=== PATIENT | male | born 1955 | race Caucasian/White ===

== ENCOUNTER 2025-05-14 10:13 | Outpatient (CLI) | payer OTHER, SELFPAY ==
--- NOTE | ~2025-05-14 | CT_ITS ---
CT of the Abdomen and Pelvis: Indication: Prostate cancer Technique: 2.5 mm axial scans were obtained through the abdomen and pelvis following intravenous adm inistration of 100 cc of Omnipaque 350. Dose reduction technique was used on this scan by utilizing a utomated exposure control and iterative reconstruction technique. The dose-length product (DLP) was 1 194.54 mGy-cm. Findings: Scans through the lung bases are unremarkable. The liver, spleen, pancreas, gallbladder, right adrenal gland are within normal limits. 1.4 cm left a drenal nodule is indeterminate. Probable parapelvic left renal cysts rather than hydronephrosis. Smal l cortical right renal cyst present. There are atherosclerotic calcifications of the aorta. No lymph adenopathy. No bowel obstruction or bowel wall thickening. There is no evidence to suggest acute appendicitis. Images through the pelvis were performed. Urinary bladder unremarkable. Prostate gland is enlarged an d mildly heterogeneous. Impression: No definite evidence for metastatic disease. 1.4 cm left adrenal nodule there is statistically most likely adenoma. Consider follow-up MR to attem pt to confirm. Probable parapelvic left renal cyst versus possibly hydronephrosis. Mildly enlarged prostate gland. Reviewed, dictated and finalized at location . Impression: No definite evidence for metastatic disease. 1.4 cm left adrenal nodule there is statistically most likely adenoma. Consider follow-up MR to attempt to confirm. Probable parapelvic left renal cyst versus possibly hydronephrosis. Mildly enlarged prostate gland.
--- NOTE | ~2025-05-14 | NM_ITS ---
EXAMINATION: NM bone scan whole body DATE: 05/14/2025 14:30 INDICATION: Prostate cancer TECHNIQUE: 25.0 mCi Tc-99m HDP was administered intravenously. Delayed whole-body scintigrams were o btained. COMPARISON: CT dated 05/14/2025 FINDINGS: Typical pattern of minimal to mild scattered degenerative joint centered uptake at the feet, hands an d wrists, elbows, shoulders and sternoclavicular joints. Small focus of mild likely dental disease re lated uptake at the left mandible. No other suspicious foci of abnormal bone uptake to suggest metast atic disease. There is asymmetric accumulation of activity at the upper and lower poles of the left k idney which appears to correspond to mild hydronephrosis in the calyces peripheral to a large parapel jason cyst in the left renal hilum. IMPRESSION: 1. No foci of atypical bone uptake to suggest metastatic disease. Reviewed, dictated and finalized at location B.
[2025-05-14 10:48] LABS: Estimated Glomerular Filt Rate > 60
== END 2025-05-14 10:14 | disposition home or self-care (01) ==
PROVIDERS: PCP Internal Medicine; Visit Provider Urology
DX: C61 Malignant neoplasm of prostate (principal); N28.1 Cyst of kidney, acquired; D35.02 Benign neoplasm of left adrenal gland
CPT/HCPCS: 74177; 78306; A9503; Q9967

== ENCOUNTER 2025-07-18 13:58 | Outpatient (CLI) | payer OTHER, SELFPAY ==
--- NOTE | ~2025-07-18 | PE_ITS ---
EXAMINATION: PET_PETPSMAST_PT DATE: 07/18/2025 16:06 INDICATION: Prostate cancer TECHNIQUE: 4.245 mCi of Illucix Ga-68([id number]) was administered i.v. Low dose computed tomography (CT) images were acquired from the base of the brain to the base of the brain to the proximal thighs for attenuation correction and anatomic localization. Positron emission tomography (PET) images were acquired in the same distribution beginning 69 minutes after injection. Images including fused PET/CT images were reconstructed in axial, coronal, and sagittal planes. Automated exposure control technique was employed. The dose-length product was 1342.91mGy-cm. COMPARISON: CT and bone scan dated 05/14/2025 FINDINGS: Head/neck: Typical pattern of symmetric physiologic increased activity in the lacrimal, parotid and submandibular glands as well as along the mucosa of the nasal and oral cavities, pharynx and hypopharynx. No pathologically enlarged cervical lymphadenopathy or suspicious foci of increased uptake in the visualized head or neck. Chest: Respiratory motion and mild dependent atelectasis in both lungs. No suspicious pulmonary nodules or pleural effusion. Heart size is normal. Atherosclerotic coronary artery calcifications. No pericardial effusion. Thoracic aorta is normal in caliber. No pathologically enlarged or PSMA avid thoracic lymp hadenopathy. Abdomen/pelvis/proximal thighs: Physiologic renal accumulation and excretion of activity in the kidneys, bladder and along portions of ureters. There are photopenic defects associated with bilateral renal cysts, the larger on the right measuring 2.3 cm. Unchanged moderate left hydronephrosis versus prominent peripelvic cysts at the left renal hilum without evident obstructing stone or mass at the ureteropelvic junction. Prostatomegaly measuring 5.7 x 4.8 cm. There are small regions of increased activity posteriorly in the peripheral zone of the prostate with maximal SUV of 4.1 on the left and 3.5 on the right consistent with reported biopsy-proven primary prostate cancer. Normal degree and slightly heterogenous pattern of increased uptake throughout the liver and spleen without radiologic correlate or dominant PSMA avid lesion. The gallbladder, pancreas and right adrenal gland are normal. 1.1 cm low-attenuation left adrenal adenoma. Moderate uptake scattered throughout the bowels with typical duodenal and proximal jejunal predominance and without radiologic correlate, also likely physiologic. No other abnormal foci of increased uptake or pathologically enlarged lymphadenopathy in the abdomen, pelvis or proximal thighs. Musculoskeletal: Moderate lower cervical and lumbosacral and mild intervening thoracic and lumbar spondylosis. No suspicious lytic, blastic or abnormally PSMA avid bone lesions. IMPRESSION: 1. Mild increased uptake in the posterior prostate consistent with primary prostate cancer. No evident metastatic disease. 2. Unchanged moderate left hydronephrosis versus prominent peripelvic cysts with no evident obstructing stone or mass at the ureteropelvic junction. Reviewed, dictated and finalized at location A. IMPRESSION: 1. Mild increased uptake in the posterior prostate consistent with primary pros jane cancer. No evident metastatic disease. 2. Unchanged moderate left hydronephrosis versus prominent peripelvic cysts wit h no evident obstructing stone or mass at the ureteropelvic junction.
== END 2025-07-18 13:59 | disposition home or self-care (01) ==
PROVIDERS: PCP Family Medicine; Visit Provider Radiology Radiation Oncology
DX: Z51.0 Encounter for antineoplastic radiation therapy (principal); C61 Malignant neoplasm of prostate; Z19.1 Hormone sensitive malignancy status
CPT/HCPCS: 78815; A9596

== ENCOUNTER 2025-09-28 15:38 | Outpatient (CLI) | payer OTHER, SELFPAY ==
--- NOTE | ~2025-09-28 | MR_ITS ---
EXAMINATION: MR abdomen wo/w con DATE: 09/28/2025 16:59 INDICATION: Left adrenal mass. Prostate cancer. TECHNIQUE: Magnetic resonance imaging (MRI) of the abdomen was performed without and with 19 mL MultiHance intravenous contrast. COMPARISON: CT abdomen and pelvis 05/14/2025, PET/CT 07/18/2025 FINDINGS: The liver, gallbladder, and spleen are normal. There are 2 cysts in the pancreas measuring up to 5 mm. Right adrenal gland is normal. There is a 1.4 cm mass in left adrenal gland containing microscopic fat, consistent with an adenoma. There are cysts in the kidneys measuring up to 4.7 cm on the left. There is mild left hydronephrosis. There are no dilated loops of bowel. There are no pathologically enlarged lymph nodes. There is no free intraperitoneal fluid. IMPRESSION: 1. 1.4 cm left adrenal adenoma. 2. Two low-risk pancreatic cysts measuring up to 5 mm. The differential diagnosis includes pseudocyst, intraductal papillary mucinous neoplasm (IPMN), mucinous cystic neoplasm (MCN), serous cystadenoma, and neuroendocrine tumor. Consider abdomen MRI without and with contrast in 2 years. 3. Stable mild left hydronephrosis. Reviewed, dictated and finalized at location E. IMPRESSION: 1. 1.4 cm left adrenal adenoma. 2. Two low-risk pancreatic cysts measuring up to 5 mm. The differential diagnos is includes pseudocyst, intraductal papillary mucinous neoplasm (IPMN), mucinou s cystic neoplasm (MCN), serous cystadenoma, and neuroendocrine tumor. Consider abdomen MRI without and with contrast in 2 years. 3. Stable mild left hydronephrosis.
--- OUTSIDE RECORDS SUMMARY | 2025-09-28 15:43 | XMS_ITS | Clinical Summary ---
Author Organization 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 TAKE 1 TABLET BY MOUTH EVERY DAY 90 tablet 1 5 Active bisoprolol (ZEBETA) 5 MG tabletIndications:E ssential hypertension TAKE 1 TABLET BY MOUTH EVERY DAY 90 tablet 1 5 Active Active Problems Problem Noted Date Diagnosed Date Hypokalemia 01/19/2022 Elevated PSA 07/17/2021 Overactive bladder 05/10/2020 BMI 32.0-32.9,adult 05/10/2019 Gout 08/19/2017 Hyperlipidemia 06/21/2014 Essential hypertension 06/21/2014 Resolved Problems Problem Noted Date Diagnosed Date Resolved Date Need for prophylactic vaccin ation against Streptococcus pneumoniae (pneumococcus) 04/16/2021 04/21/2021 Health care maintenance 05/10/202003/30 Paroxysmal atrial fibrillation with RVR 07/05/2018 05/10/2019 Encounters Date Type Department Care Team Description 08/30/2025 Scan [facility] Scanned, [facility] CT (SCAN) 08/28/2025 Scan [facility] Scanned, [facility] 08/20/2025 2:20 PM CDT - 08/20/2025 11:59 PM CDT Hospital Encounter [facility] [address] [place] [address] DoserBerna SIZE PAINTER Discharge Disposition: Home or Self Care (Routine Discharge) 08/20/2025 Orders Only [facility] [address] [place] [id number] Berna Watts NP 08/20/2025 Travel 08/13/2025 1:40 PM CDT Office Visit [facility] [address] [address] Chadd Tovar MD Oxygen Saturation (Pt states his ox2 levels were low ) 08/13/2025 Travel 08/13/2025 Telephone [facility] & Internal [address] [phone] Chadd Tovar MD Breathing Problem 08/08/2025 Scan [facility] Scanned, [facility] 07/26/2025 Scan [facility] Scanned, [facility] 07/18/2025 Scan [facility] Scanned, [facility] Procedure (SCAN) 07/04/2025 Scan [facility] Scanned, [facility] from Last 3 Months Immunizations Immunization Administration Dates Next Due FLUAD (IIV, Trivalent, 0.5 M L Pre-filled Syringe) 08/23/2024 Fluzone High Dose (IIV, triv alent, 0.5mL) 08/08/2025,09/01/2024 Fluzone High Dose - >Age 65 (Prefilled Syringe) 10/01/2023,08/23/2023,09/02/2020 Influenza (Generic) 09/07/2019,08/20/2017,2015 Influenza Adult (Generic) 09/16/2022,,09/07/2019,2017,12/15/2017,12/15/2017,08/20/2017,1 12/25/2015 MODERNA COVID-19 (12+) MRNA, LNP-S, PF, 100 MCG/ 0.5 ML DOSE 02/17/2021,01/10/2021 MODERNA COVID-19 (ASSISTANT PROFESSOR OF BIOCHEMISTRY DHIRAJ TRUDY), MRNA, LNP-S, PF, 50 MCG/ 0.25 ML DOSE 11/17/2021,10/22/2021 Pneumococcal (Pneumovax 23) 04/16/2021 Pneumococcal (Prevnar 13) 11/09/2019 Shingrix 09/23/2021,07/17/2021 Td 11/04/2016 Td (Tenivac) preservative free 11/04/2016 Tdap (Generic) 06/16/2021 Family History Medical History Relation Comments Hypertension Father dialysis Father No Known Problems Mother Relation Status Comments Father Mother Alive Social History Tobacco Use Types Packs/Day Years Used Date Smoking Tobacco: Former Cigarettes 1 48 0 08/26/1970 - 08/26/2018 Smokeless Tobacco: Never Tobacco Cessation:Counseling Given: No Alcohol Use Standard Drinks/Week Comments Yes 0 (1 standard drink = 0.6 oz pur e alcohol) Occasional AUDIT-C Answer Date Recorded Q1: How often do you have a drink containing alc ohol? Monthly or less 11/18/2020 Q2: How many drinks containi ng alcohol do you have on a typical day when you are drinking? 1 or 2 11/18/2020 Frequency of Binge Drinking Not on file 10/30 PHQ-2 Answer Date Recorded Patient Health Questionnaire-2 Score 0 10/23/2024 Education Answer Date Recorded What is the highest level of school you have completed or the highest degree you have received? High school graduate 02/23/2019 Sex and Gender Information Value Date Recorded Sex Assigned at Male 05/11/2025 11:12 AM CDT Legal Sex Male 7:26 PM CDT Gender Identity Male 05/11/2025 11:12 AM CDT Sexual Orientation Not on file Last Filed Vital Signs Vital Sign Reading Time Taken Comments Blood Pressure 189/106 08/13/2025 1:28 PM CDT Pulse 58 08/13/2025 1:28 PM CDT Temperature 36.5 C (97.7 F) 08/13/2025 1:28 PM CDT Respiratory Rate 16 08/13/2025 1:28 PM CDT Oxygen Saturation 93% 08/13/2025 1:28 PM CDT Inhaled Oxygen Concentration - - Weight 107 kg (236 lb) 08/13/2025 1:28 PM CDT Height 182.9 cm (6') 08/13/2025 1:28 PM CDT Body Mass Index 32.01 08/13/2025 1:28 PM CDT Plan of Treatment Upcoming Encounters Date Type Department Care Team (Late st Contact Info) Description 11/01/2025 11:20 AM CARPENTRY INSTRUCTOR Office Visit [facility] Family & Internal Medicine [address] [phone] Chadd Tovar MD [address] [place] [id number] Health Maintenance Due Date Last Done Comments Hepatitis C 1973 AAA SCREENING 2019 Annual Medicare Wellness Visit 2019 PHQ-2 (Physician [place]) 11/29/2024 10/23/2024 Colorectal Cancer Screening Colonoscopy (10 Years) 12/14/2024 12/14/2014, 12/14/2014 COVID-19 Vaccine ( season) 2025 06/13/2025, 09/01/2024, 10/01/2023, Additional history exists RSV Immunization or 60+ Years (1 - 1-dose 75+ series) 2029 DTaP, Tdap and Td Vaccines (2 - Td or Tdap) 06/16/2031 06/16/2021, 11/04/2016, 11/04/2016 Pneumococcal Vaccine: 50+ Years Completed 04/16/2021, 11/09/2019 Zoster Vaccines Completed 09/23/2021, 07/17/2021 Influenza Adult Completed 08/08/2025, 02/2024, 08/23/2024, Additional history exists Hepatitis A Vaccines Aged Out No long er eligible based on patient's age to complete this topic Meningococcal B Vaccine Aged Out No l onger eligible based on patient's age to complete this topic Meningococcal Vaccine Aged Out No silvio haseeb eligible based on patient's age to complete this topic RSV Immunizations Under 20 Months Aged Out No longer eligible based on patient's age to complete this topic Procedures Procedure Name Priority Date/Time Associated Diagnosis Comments CT GENERIC 08/30/2025 CT GENERIC 08/30/2025 TESTOSTERONE, TOTAL Routine 08/20/2025 2 :38 PM CDT Prostate cancer ([facility]) PROSTATE SPECIFIC ANTIGEN,TOTAL Routine 08/20/2025 2:38 PM CDT Prostate cancer ([facility]) PROCEDURE GENERIC (SCAN ORDER) 07/18/2025 PROCEDURE GENERIC (SCAN ORDER) 07/18/2025 COLONOSCOPY Routine 12/14/2014 12:00 AM CARPENTRY INSTRUCTOR from Last 3 Months or Most Recently Relevant to Health Maintenance Results * CT GENERIC (08/30/2025) Only the most recent of2 resultswithin the time period is included. Anatomical Region Laterality Modality Other 08/30/2025 us [facility] Scanned SCANNING Final Resu lt * (ABNORMAL) PROSTATE SPECIFIC ANTIGEN,TOTAL (08/20/2025 2:38 PM CDT) PSA 6.53(H) <4.00 NG/ML 08/20/2025 3:27 PM CDT [facility] Comment: Test was performed using the Siemens method. Results obtained with other assay methods or kits cannot be used interchangeably with results obtained by the Siemens method. 08/20/2025 2:38 PM CDT us Berna Doser SIZE PAINTER LABORATORY Final Result [facility] [address] [place] [address], [place] [phone] * (ABNORMAL) TESTOSTERONE, TOTAL (08/20/2025 2:38 PM CDT) TESTOSTERONE TOTAL 18(L) 250 - 1,100 ng/dL 08/24/2025 11:48 AM CDT [facility] Comment: Men with clinically significant hypogonadal symptoms and testosterone values repeatedly in the range of the 200-300 ng/dL or less, may benefit from testosterone treatment after adequate risk and benefits counseling. For additional information, please refer to http://education.OurShelf/faq/ IpoaiRmxhnvbtdnglCVVWDRSWD681 (This link is being provided for informational/ educational purposes only.) This test was developed and its analytical performance characteristics have been determined by [place]. It has not been cleared or approved by the U.S. Food and Drug Administration. This assay has been validated pursuant to the CLIA regulations and is used for clinical purposes. Test Performed by [facility], [facility], [address] [place] [address] Mohan Eaton M.D., Ph.D., Director of Laboratories , CLIA [id number] 08/20/2025 2:38 PM CDT us Berna Doser SIZE PAINTER LABORATORY Final Result [facility] , [place] [phone] * PROCEDURE GENERIC (SCAN ORDER) (07/18/2025) 07/18/2025 [facility] Scanned SCANNING Final Resu lt * PROCEDURE GENERIC (SCAN ORDER) (07/18/2025) 07/18/2025 us [facility] Scanned SCANNING Final Resu lt * Colonoscopy (12/14/2014 12:00 AM CARPENTRY INSTRUCTOR) 12/14/2014 12/14/2014 Narrative [facility] TO EPIC CONVERSION - 12/14/2014 12:00 AM CARPENTRY INSTRUCTOR Documented hx of procedure Procedure Note Terri Juan MD - 10/02/2018 Documented hx of procedure Generic Conversion Md JUAN GI PROCEDURE ORDERABLES Final Result [facility] TO EPIC CONVERSION from Last 3 Months or Most Recently Relevant to Health Maintenance Insurance [employer] Care Teams Rotary Shear Worker Helper Relationship Specialty [place] [address] [place] [address] PCP - General FAMILY PRACTICE 01/20/23
== END 2025-09-28 15:39 | disposition home or self-care (01) ==
PROVIDERS: PCP Family Medicine; Visit Provider Radiology Radiation Oncology
DX: D35.02 Benign neoplasm of left adrenal gland (principal); K86.2 Cyst of pancreas; N13.30 Unspecified hydronephrosis; Z51.0 Encounter for antineoplastic radiation therapy; C61 Malignant neoplasm of prostate
CPT/HCPCS: 74183; A9577